=== PATIENT | male | born 1980 | race Caucasian/White ===

== ENCOUNTER 2018-11-14 19:36 | Emergency (ER) | payer OTHER ==
--- NOTE | 2018-11-14 19:48 | EDPHY ---
H & P Stated Complaint: fell on ice hurt back 2 weeks ago Time Seen by Provider: 11/14/18 19:44 HPI/ROS: CHIEF COMPLAINT: Chest and back pain HISTORY OF PRESENT ILLNESS: The patient presents the ED with complaints of a 2 week history of chest and back pain. 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 He reportedly was mariia several weeks ago while working. Since that time he has had some pain in his midthoracic area. The patient reports a prior history of compression fracture in his midthoracic spine. He reports that he is having pleuritic chest pain. He has mild dyspnea. The patient does smoke. He sits for prolonged period of time and also reports that his mother of a pulmonary embolism. The patient denies any asymmetric calf pain or swelling. The patient denies additional acute complaints. REVIEW OF SYSTEMS: A comprehensive 10 point review of systems is otherwise negative aside from elements mentioned in the history of present illness. Source: Patient Exam Limitations: No limitations - Personal History Current Tetanus/Diphtheria Vaccine: Yes Current Tetanus Diphtheria and Acellular Pertussis (TDAP): Yes - Medical/Surgical History Hx Asthma: No Hx Chronic Respiratory Disease: No Hx Diabetes: No Hx Cardiac Disease: No Hx Renal Disease: No Hx Cirrhosis: No Hx Alcoholism: No Hx HIV/AIDS: No Hx Splenectomy or Spleen Trauma: No Other PMH: denies - Family History Significant Family History: Other - Social History Smoking Status: Current every day smoker - Physical Exam Exam: General Appearance: Alert, no distress Head: Atraumatic Eyes: Pupils equal, round, reactive ENT, Mouth: No hemotympanum, no oral trauma Neck: Nontender, trachea midline Respiratory: No chest wall tender, no subcutaneous air, lungs clear bilaterally Cardiovascular: Tachycardic Abdomen: Abdomen is soft and nontender, pelvis stable Skin: No lacerations, No abrasion Back: Tenderness to deep palpation noted in the mid thoracic area both in midline and in the paraspinal musculature Extremities: Nontender, full range of motion Neurological: A&Ox3, normal motor function, normal sensory exam Constitutional: Initial Vital Signs Temperature (C) 36.7 C 11/14/18 19:38 Heart Rate 88 11/14/18 19:38 Respiratory Rate 16 11/14/18 19:38 Blood Pressure 152/109 H 11/14/18 19:38 O2 Sat (%) 95 11/14/18 19:38 O2 Delivery Mode Room Air Allergies/Adverse Reactions: No Known Allergies Allergy (Unverified 11/14/18 19:42) Home Medications: Medication Instructions Recorded Cyclobenzaprine [Flexeril 10 MG 10 mg PO TID PRN #15 tab 11/14/18 (*)] Lidocaine 5% [Lidoderm 5% Patch] 1 ea TD DAILY #12 patch 11/14/18 Medical Decision Making - Diagnostics EKG Interpretation: EKG: Complete interpretation has been separately recorded in the [facility] archive. Summary impression: Sinus rhythm, rate 88, no ischemic changes noted Imaging Results: Chest x-ray AP: Images reviewed by myself, negative for rib fracture pneumothorax. Thoracic spine x-ray: Old lower thoracic spine compression fracture. Nothing noted in the upper thoracic spine were the patient is symptomatic. ED Course/Re-evaluation: The patient presents the ED with complaints of chest and back pain. The patient has musculoskeletal component but also reports a family history of PE and DVT. He has been immobilized. The patient's D-dimer is negative which I feel adequately excludes pulmonary embolism. The patient was taken for radiographs of the chest and spine. Patient has evidence of an old thoracic compression fracture in the lower thoracic spine but no evidence of an acute fracture. Patient's chest x-ray demonstrates no evidence of a rib fracture pneumothorax. Patient was treated with Toradol in the emergency department. The patient will be discharged home with a prescription for lidocaine patches, instructions to use NSAIDs. He is also given a prescription for Flexeril. Differential Diagnosis: Differential diagnosis considered includes myofascial strain, compression fracture, rib fracture, pneumothorax - Data Points Laboratory Results: Laboratory Results 11/14/18 19:58 11/14/18 19:58 11/14/18 11/14/18 11/14/18 19:58 19:58 19:58 WBC 10.13 10^3/uL H 10^3/uL (3.80-9.50) RBC 4.93 10^6/uL 10^6/uL (4.40-6.38) Hgb 16.3 g/dL g/dL (13.7-17.5) Hct 45.3 % % (40.0-51.0) MCV 91.9 fL fL (81.5-99.8) MCH 33.1 pg pg (27.9-34.1) MCHC 36.0 g/dL g/dL (32.4-36.7) RDW 12.7 % % (11.5-15.2) Plt Count 255 10^3/uL 10^3/uL (150-400) MPV 11.0 fL fL (8.7-11.7) Neut % (Auto) 55.8 % % (39.3-74.2) Lymph % (Auto) 34.5 % % (15.0-45.0) [place] % (Auto) 6.7 % % (4.5-13.0) Eos % (Auto) 2.1 % % (0.6-7.6) Baso % (Auto) 0.6 % % (0.3-1.7) Nucleat RBC Rel Count 0.0 % % (0.0-0.2) Absolute Neuts (auto) 5.66 10^3/uL 10^3/uL (1.70-6.50) Absolute Lymphs (auto) 3.49 10^3/uL H 10^3/uL (1.00-3.00) Absolute Monos (auto) 0.68 10^3/uL 10^3/uL (0.30-0.80) Absolute Eos (auto) 0.21 10^3/uL 10^3/uL (0.03-0.40) Absolute Basos (auto) 0.06 10^3/uL 10^3/uL (0.02-0.10) Absolute Nucleated RBC 0.00 10^3/uL 10^3/uL (0-0.01) Immature Gran % 0.3 % % (0.0-1.1) Immature Gran # 0.03 10^3/uL 10^3/uL (0.00-0.10) D-Dimer 0.32 ug/mLFEU ug/mLFEU (0.00-0.50) Sodium 138 mEq/L mEq/L (135-145) Potassium 3.7 mEq/L mEq/L (3.5-5.2) Chloride 104 mEq/L mEq/L (97-110) Carbon Dioxide 21 mEq/l L mEq/l (22-31) Anion Gap 13 mEq/L mEq/L (6-14) BUN 15 mg/dL mg/dL (7-23) Creatinine 1.0 mg/dL mg/dL (0.7-1.3) Estimated GFR > 60 Glucose 110 mg/dL H mg/dL (70-100) Calcium 9.5 mg/dL mg/dL (8.5-10.4) Medications Given: Discontinued Medications Ketorolac Tromethamine (Toradol) 30 mg IVP EDNOW ONE Stop: 11/14/18 20:33 Last Admin: 11/14/18 20:45 Dose: 30 mg Miscellaneous Medication (Icy Hot Lidocaine/Menthol 4%/1% Patch) 1 patch TD EDNOW ONE Stop: 11/14/18 20:33 Last Admin: 11/14/18 20:46 Dose: 1 patch Departure - Departure Disposition: Home, Routine, Self-Care Clinical Impression: Thoracic myofascial strain Condition: Good Instructions: Musculoskeletal Pain (ED) Additional Instructions: 1. Take Ibuprofen or Motrin 600 mg by mouth three times a day. 2. Lidocaine patches as prescribed 3. Flexeril as needed for muscle relaxation 4. Colton as needed for severe pain 5. Please follow-up with a back specialist you have been referred to for any unimproved symptoms. Referrals: Rohith Kumar MD [Medical Doctor] - As per Instructions Prescriptions: Cyclobenzaprine [Flexeril 10 MG (*)] 10 mg PO TID PRN #15 tab PRN Reason: Spasms Lidocaine 5% [Lidoderm 5% Patch] 1 ea TD DAILY #12 patch
[2018-11-14 20:09] LABS: PLATELET COUNT 255 10^3/uL (150-400)
[2018-11-14] MEDS ORDERED: LIDOCAINE 4%/MENTHOL 1% PATCH TD ONE (20:32)
[2018-11-14] MEDS ORDERED: KETOROLAC 30 MG/1 ML SDV IVP ONE (20:32)
--- NOTE | 2018-11-14 20:50 | CPEKG ---
Test Reason : OPEN Blood Pressure : / mmHG Vent. Rate : 088 BPM Atrial Rate : 086 BPM P-R Int : 129 ms QRS Dur : 085 ms QT Int : 356 ms P-R-T Axes : -04 045 040 degrees QTc Int : 431 ms Sinus rhythm Abnormal R-wave progression, early transition Confirmed by Isreal Don ([id number]) on 11/14/2018 8:49:39 PM Referred By: Isreal Don Confirmed By:Isreal Don
[2018-11-14] MEDS ORDERED: PATCH REMOVAL 1 EA PATCH TD SCH (21:00)
[2018-11-14 21:26] VITALS: BP 132/87
== END 2018-11-14 21:29 | disposition home or self-care (01) ==
DX: S29.012A Strain of muscle and tendon of back wall of thorax, initial encounter (principal); X50.9XXA Other and unspecified overexertion or strenuous movements or postures, initial encounter; Y99.0 Civilian activity done for income or pay; Y92.9 Unspecified place or not applicable; Y93.9 Activity, unspecified
CPT/HCPCS: 96374; J1885